=== PATIENT | male | born 1945 | race Native Hawaiian/Other Pacific Islander ===

== ENCOUNTER 2016-11-04 22:59 | Outpatient (CLI) | payer OTHER ==
[~2016-11-04 22:59] MED LIST: CLOP75TA2 PO; EQ ASPIRIN325 M2 PO; LIPITOR20 MG PO
== END 2016-11-04 23:03 | disposition short-term general hospital (02) ==
LOC: AMB 22:59
DX: F41.0 Panic disorder [episodic paroxysmal anxiety] (principal)
CPT/HCPCS: A0425; A0427

== ENCOUNTER 2016-11-04 23:05 | Emergency (ER) | payer OTHER ==
[~2016-11-04] VITALS: Ht 182.9 cm; Wt 77.1 kg
[2016-11-05 00:11] LABS: PLATELET COUNT 216 K/uL (142-355)
[2016-11-05 00:26] LABS: POTASSIUM 3.6 mmol/L (3.6-5.2)
[2016-11-05 00:57] VITALS: BP 124/79; TEMP 97.9
== END 2016-11-05 00:58 | disposition home or self-care (01) ==
LOC: ED 23:05
DX: R73.9 Hyperglycemia, unspecified (principal); F41.8 Other specified anxiety disorders
CPT/HCPCS: 80053; 83036; 85027; 96360; 99283

== ENCOUNTER 2016-11-08 21:04 | Emergency (ER) | payer OTHER ==
[~2016-11-08] VITALS: Ht 182.9 cm; Wt 77.1 kg
[2016-11-08 21:55] LABS: PLATELET COUNT 198 K/uL (142-355)
[2016-11-08 22:00] LABS: POTASSIUM 3.6 mmol/L (3.6-5.2); SODIUM 135 mmol/L (136-145)
[2016-11-08 23:22] VITALS: BP 131/73; TEMP 97.8
== END 2016-11-08 23:24 | disposition home or self-care (01) ==
LOC: ED 21:04
DX: F41.0 Panic disorder [episodic paroxysmal anxiety] (principal)
CPT/HCPCS: 80053; 81000; 85027; 96361; 96374; 99284; J2060

== ENCOUNTER 2016-11-30 08:36 | Outpatient (CLI) | payer OTHER ==
[2016-11-30 08:59] LABS: PLATELET COUNT 192 K/uL (142-355)
[2016-11-30 10:33] LABS: POTASSIUM 3.7 mmol/L (3.6-5.2); SODIUM 138 mmol/L (136-145)
== END 2016-11-30 19:08 | disposition home or self-care (01) ==
LOC: LABW 08:36
PROVIDERS: Internal Medicine
DX: G45.9 Transient cerebral ischemic attack, unspecified (principal); Z79.899 Other long term (current) drug therapy
CPT/HCPCS: 36415; 80053; 80061; 81000; 84439; 84443; 85027

== ENCOUNTER 2017-02-13 09:16 | Outpatient (CLI) | payer OTHER | END 2017-02-13 10:20 | disposition home or self-care (01) | LOC: MRI 09:16 | DX: G20 Parkinson's disease (principal) ==

== ENCOUNTER 2018-03-17 10:08 | Emergency (ER) | payer OTHER ==
[~2018-03-17] VITALS: Ht 182.9 cm; Wt 73.9 kg
[2018-03-17] MEDS ORDERED: LORA0.5T17 PO (10:34)
[2018-03-17] MEDS ORDERED: OXYC5TAB53 PO (10:35)
[2018-03-17 11:42] LABS: PLATELET COUNT 314 K/uL (142-355)
[2018-03-17 11:51] LABS: POTASSIUM 4.2 mmol/L (3.6-5.2)
[2018-03-17 13:05] VITALS: BP 119/61; TEMP 98.1
== END 2018-03-17 13:05 | disposition home or self-care (01) ==
LOC: ED 10:08
DX: M48.54XA Collapsed vertebra, not elsewhere classified, thoracic region, initial encounter for fracture (principal); K59.09 Other constipation
CPT/HCPCS: 36415; 74022; 80053; 81000; 85027; 96374; 99284; J1885

== ENCOUNTER 2018-04-01 17:54 | Emergency (ER) | payer OTHER ==
[~2018-04-01] VITALS: Ht 182.9 cm; Wt 73.9 kg
[~2018-04-01 17:54] MED LIST changes: +LORA0.5T17 PO; +OXYC5TAB53 PO
[2018-04-01] MEDS ORDERED: PROCHLORPER10 MG PO (18:20)
[2018-04-01] MEDS ORDERED: KP FOLIC ACID1 MG PO (18:20)
[2018-04-01] MEDS ORDERED: DEXAMETHASON4 MG PO (18:20)
[2018-04-01] MEDS ORDERED: ZOFRAN ODT4 MG OR (18:21)
[2018-04-01 19:24] LABS: PLATELET COUNT 404 K/uL (142-355)
[2018-04-01 19:59] LABS: POTASSIUM 3.9 mmol/L (3.6-5.2)
[2018-04-01 20:44] VITALS: BP 107/66; TEMP 98
== END 2018-04-01 20:53 | disposition home or self-care (01) ==
LOC: ED 17:54
PROVIDERS: Emergency Medicine
DX: E86.0 Dehydration (principal); R11.2 Nausea with vomiting, unspecified; C34.90 Malignant neoplasm of unspecified part of unspecified bronchus or lung
CPT/HCPCS: 36415; 80053; 85027; 96360; 99284; J2550

== ENCOUNTER 2018-07-07 19:34 | Outpatient (CLI) | payer OTHER ==
[~2018-07-07 19:34] MED LIST changes: +DEXAMETHASON4 MG PO; +KP FOLIC ACID1 MG PO; +PROCHLORPER10 MG PO; +ZOFRAN ODT4 MG OR
== END 2018-07-07 19:38 | disposition short-term general hospital (02) ==
LOC: AMB 19:34
DX: R06.02 Shortness of breath (principal)
CPT/HCPCS: A0425; A0427

== ENCOUNTER 2018-07-13 12:38 | Outpatient (CLI) | payer OTHER | END 2018-07-13 12:55 | disposition short-term general hospital (02) | LOC: AMB 12:38 | DX: R06.02 Shortness of breath (principal); R07.89 Other chest pain | CPT/HCPCS: A0425; A0427 ==

== ENCOUNTER 2018-07-28 08:18 | Outpatient (CLI) | payer OTHER | END 2018-07-28 08:36 | disposition short-term general hospital (02) | LOC: AMB 08:18 | DX: M54.5 Low back pain (principal) | CPT/HCPCS: A0425; A0427 ==